=== PATIENT | female | born 1990 | race Caucasian/White ===

== ENCOUNTER 2017-12-15 09:05 | Emergency (ER) | payer SELFPAY ==
[2017-12-15 09:33] VITALS: BP 107/67; PULSE 93; TEMP 98.3; BMI 39.0
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
[2017-12-15] MEDS ORDERED: ACETAMINOPHEN 325 MG TABLET (FP) PO ONE (10:13)
[2017-12-15] MEDS ORDERED: ACETAMINOPHEN 325 MG TABLET (FP) ONE (10:19)
[2017-12-15 10:24] LABS: HCG,QUALITATIVE URINE NEGATIVE
[2017-12-15 10:25] LABS: URINE APPEARANCE CLOUDY; URINE BILIRUBIN NEGATIVE (NEGATIVE); URINE BLOOD NEGATIVE (NEGATIVE); URINE COLOR YELLOW; URINE GLUCOSE (UA) NEGATIVE (NEGATIVE); URINE KETONE NEGATIVE (NEGATIVE); URINE NITRITE NEGATIVE (NEGATIVE); URINE UROBILINOGEN NEGATIVE mg/dL (0.2-1.0)
[2017-12-15 10:46] LABS: URINE LEUK ESTERASE 1+ (NEGATIVE); URINE PROTEIN 1+ (NEGATIVE)
[2017-12-15 11:38] LABS: EPI CELLS MANY /HPF (FEW); URINE BACTERIA MANY /hpf (NONE SEEN); URINE MUCUS RARE
== END 2017-12-15 13:35 | disposition home or self-care (01) ==
LOC: JER 09:05
DX: R07.89 Other chest pain (principal); Z91.410 Personal history of adult physical and sexual abuse; Z87.828 Personal history of other (healed) physical injury and trauma
CPT/HCPCS: 71111-TC-FY; 81003; 81015; 84703; 87086; 87186; 99281-25

== ENCOUNTER 2022-01-05 | Emergency (ER) | payer OTHER ==
[2022-01-05 00:21] VITALS: BP 118/73; PULSE 76; TEMP 97.7; BMI 39.0
[2022-01-05] MEDS ORDERED: diphenhydrAMINE HCL 25 MG CAPSULE (FP) PO ONE ×2 (01:08→01:16)
== END 2022-01-05 01:19 | disposition home or self-care (01) ==
LOC: JER
DX: L30.9 Dermatitis, unspecified (principal)
CPT/HCPCS: 99283-25

== ENCOUNTER 2022-03-31 01:35 | Emergency (ER) | payer OTHER ==
[2022-03-31 01:54] VITALS: BP 127/88; PULSE 90; TEMP 98.5; BMI 47.5
[2022-03-31] MEDS ORDERED: LIDOCAINE 5% TOPICAL PATCH TP ONE (03:42)
[2022-03-31] MEDS ORDERED: KETOROLAC TROMETHAMINE 30 MG/1 ML VIAL IM ONE (03:42)
[2022-03-31] MEDS ORDERED: diazePAM 5 MG TABLET PO ONE (03:42)
[2022-03-31] MEDS ORDERED: LIDOCAINE 5% TOPICAL PATCH ONE (04:00)
[2022-03-31] MEDS ORDERED: diazePAM 5 MG TABLET ONE (04:00)
[2022-03-31] MEDS ORDERED: KETOROLAC TROMETHAMINE 30 MG/1 ML VIAL ONE (04:53)
[2022-03-31] MEDS ORDERED: LIDOCAINE PATCH REMOVAL MC SCH (22:00)
== END 2022-03-31 06:35 | disposition home or self-care (01) ==
LOC: JER 01:35
PROC: 3E0233Z Introduction of Anti-inflammatory into Muscle, Percutaneous Approach (ICD-10-PCS; principal; 2022-03-31)
DX: R91.1 Solitary pulmonary nodule (principal); M54.50 Low back pain, unspecified
CPT/HCPCS: 72128-TC; 72131-TC; 84703; 99285-25

== ENCOUNTER 2023-07-03 08:55 | Emergency (ER) | payer OTHER ==
[2023-07-03 09:09] VITALS: BP 159/91; PULSE 85; RESP 18; TEMP 98.6; BMI 50.1
[2023-07-03] MEDS ORDERED: METOCLOPRAMIDE HCL INJECTION 10 MG/2 ML VIAL IVPB ONE (09:33)
[2023-07-03] MEDS ORDERED: SODIUM CHLORIDE 0.9% 500 ML INFUS.BAG IV ONE (09:33)
[2023-07-03] MEDS ORDERED: ACETAMINOPHEN 1000 MG/100 ML BAG IVPB ONE (09:36)
[2023-07-03] MEDS ORDERED: METOCLOPRAMIDE HCL INJECTION 10 MG/2 ML VIAL ONE (09:49)
[2023-07-03] MEDS ORDERED: ACETAMINOPHEN INJECTION 100 ML IVPB ONE (09:49)
[2023-07-03 10:24] LABS: BASO % 0.6 % (0-2.0); EOS % 2.1 % (0-4.5); HEMOGLOBIN 12.5 GM/dL (10.7-15.3); LYMPH % 19.5 % (8-40); MCH 28.1 pg (25.7-33.7); MCHC 32.9 g/dl (32.0-36.0); MEAN CELL VOLUME 85.5 fl (80-96); MEAN PLT VOLUME 8.5 fl (7.5-11.1); MONO % 6.8 % (3.8-10.2); PLATELET COUNT 366 10^3/uL (134-434); RBC 4.44 M/mm3 (3.60-5.2); RDW 15.4 % (11.6-15.6)
[2023-07-03 10:41] LABS: POTASSIUM 5.7 mmol/L (3.5-5.1)
[2023-07-03 10:43] LABS: ALBUMIN 3.3 g/dl (3.4-5.0); BLOOD UREA NITROGEN 12.3 mg/dL (7-18); CALCIUM 9.1 mg/dL (8.5-10.1)
[2023-07-03 10:47] LABS: CREATININE 0.5 mg/dL (0.55-1.3)
[2023-07-03 10:48] LABS: BILIRUBIN,TOTAL 0.4 mg/dL (0.2-1); TOT PROT 7.9 g/dl (6.4-8.2)
[2023-07-03] MEDS ORDERED: AMOX TR/POT CLAV 875MG/125MG TABLETS (FP) PO ONE (11:14)
[2023-07-03] MEDS ORDERED: AMOX TR/POT CLAV 875MG/125MG TABLETS (FP) ONE (11:29)
== END 2023-07-03 11:45 | disposition home or self-care (01) ==
LOC: JER 08:55
PROC: 3E033NZ Introduction of Analgesics, Hypnotics, Sedatives into Peripheral Vein, Percutaneous Approach (ICD-10-PCS; principal; 2023-07-03)
PROC: 3E033GC Introduction of Other Therapeutic Substance into Peripheral Vein, Percutaneous Approach (ICD-10-PCS; 2023-07-03)
DX: R51.9 Headache, unspecified (principal); R11.0 Nausea; H53.71 Glare sensitivity; E66.9 Obesity, unspecified; J01.90 Acute sinusitis, unspecified; R42 Dizziness and giddiness
CPT/HCPCS: 36415; 70450-TC; 80053; 84703; 85025; 99284-25